=== PATIENT | female | born 1950 | race African-American/Black ===

== ENCOUNTER 2019-11-26 12:17 | Observation (INO) ==
[2019-11-26] MEDS ORDERED: ASPIRIN ONE (12:37)
[2019-11-26] MEDS ORDERED: ASPIRIN PO ONE (12:37)
[2019-11-26 13:01] LABS: BASO# 0.01 X1000 (0.0-0.2); BASO% 0.2 % (0.0-0.8); EOS# 0.21 X1000 (0.0-0.7); EOS% 3.6 % (0.0-10.0); HEMATOCRIT 35.4 % (37.0-47.0); HEMOGLOBIN 9.8 g/dL (12.0-16.0); IMM GRAN# 0.02 X1000 (0.0-0.04); IMM GRAN% 0.3 % (0.0-0.5); LYMPH# 1.52 X1000 (1.2-3.4); LYMPH% 26.4 % (20.5-51.1); MCH 25.9 PG (27-31); MCHC 27.7 g/dL (33-37); MCV 93.7 FL (81-99); MONO% 10.4 % (1.7-9.3); MPV 9.1 FL (7.4-10.4); NEUT% 59.1 % (42.2-75.2); PLT 270 X1000 (130-400); RBC 3.78 XMIL (4.2-5.4); WBC 5.76 X1000 (4.8-10.8)
--- NOTE | 2019-11-26 13:01 | Diag Imaging Result Doc PS360 ---
EXAM: CHEST-2 VIEWS HISTORY: cp TECHNIQUE: Two views COMPARISON: 11/23/2019 FINDINGS: The lungs are hyperexpanded. The heart is not enlarged. The vessels are small. There are no infiltrates. Tiny right pleural effusion versus pleural thickening. Left lower lobe granuloma. IMPRESSION: Emphysema. Stable chest Electronically signed by Oscar Oh 11/26/2019 12:58 PM
[2019-11-26 13:22] LABS: AGAP 10; ALBUMIN 4.5 g/dL (3.5-5.0); ALKALINE PHOSPHATASE 52 U/L (32-104); BUN 13 mg/dL (8-22); CALCIUM 9.4 mg/dL (8.8-10.2); CHLORIDE 95 mmol/L (98-107); CK PROFILE 58 U/L (24-173); COSMO 285; CREATININE 0.7 mg/dL (0.5-0.9); ESTIMATED GFR > 60; GLUCOSE 136 mg/dL (70-104); GOT 15 U/L (10-30); GPT 5 U/L (10-36); POTASSIUM 4.8 mmol/L (3.5-5.1); SODIUM 142 mmol/L (136-145); TCO2 37 mmol/L (25-35)
--- NOTE | 2019-11-26 13:32 | EKG Report ---
Test Performed on : 11/26/2019 12:43:31 PM Test Reason : cp Blood Pressure : / mmHG Vent. Rate : 094 BPM Atrial Rate : 094 BPM P-R Int : 190 ms QRS Dur : 082 ms QT Int : 346 ms P-R-T Axes : 071 062 076 degrees QTc Int : 432 ms Normal sinus rhythm. Normal ECG When compared with ECG of 21-FEB-2019 17:39, No significant change was found Unconfirmed Result
[2019-11-26 13:35] LABS: INR 0.84; PROTIME 11.9 Seconds (11.0-16.0)
[2019-11-26 13:36] LABS: PTT 32.1 Seconds (22.3-41.8)
--- NOTE | 2019-11-26 15:01 | PROVIDER DOCUMENTATION ---
This chart was entered by Bharati Chi Scribe, acting as scribe for Naomi Cummings MD. HPI-Chest Pain - General Chief Complaint: Chest Pain Stated Complaint: SHOULDER/HEAD PAINS Time Seen by Provider: 11/26/19 12:33 Source: patient, family () Allergies/Adverse Reactions: Patient Allergies Allergy/AdvReac Type Severity Reaction Status Date / Time clarithromycin [From Biaxin] Allergy Severe Unknown Verified 11/26/19 12:36 Home Medications: Home Medication List Medication Instructions Recorded Confirmed Last Taken Type Aspirin 81 mg PO QAM #0 chewtab 05/02/13 11/26/19 07/14/13 Rx 81 Atorvastatin Calcium 1 tab PO QHS 11/04/17 11/26/19 Unknown History Budesonide/Formoterol Fumarate 2 puff INH BID 11/04/17 11/26/19 Unknown History [Symbicort 160-4.5 Mcg Inhaler] Clopidogrel Bisulfate [Clopidogrel] 1 tab PO DAILY 11/04/17 11/26/19 Unknown History Furosemide [Lasix] 40 mg PO DAILY 11/04/17 11/26/19 Unknown History Metformin HCl [Metformin HCl ER] 1 tab PO DAILY 11/04/17 11/26/19 Unknown History Metoprolol Succinate 1 tab PO DAILY 11/04/17 11/26/19 Unknown History Potassium Chloride 1 tab PO BID 11/04/17 11/26/19 Unknown History Ranolazine [Ranexa] 1 tab PO BID 11/04/17 11/26/19 Unknown History Tiotropium Pharr Inhaler 1 inh INH DAILY 11/04/17 11/26/19 Unknown History [Spiriva] Alprazolam [Xanax] 0.5 mg PO BID 12/21/17 11/26/19 Unknown History Calcium Carbonate [Calcarb 600] 600 mg PO TID 12/21/17 11/26/19 Unknown History Esomeprazole Magnesium [Nexium] 40 mg PO DAILY #30 capsule. 12/21/17 11/26/19 Unknown Rx Iron,Carb/Vit C/Vit B12/Folic 1 tab PO BID 12/21/17 11/26/19 Unknown History [Iron 100 Plus Tablet] Latanoprost 1 drop BOTH EYES QHS 02/04/18 11/26/19 Unknown History Nitroglycerin 1 spray SL DIRECTED PRN 02/04/18 11/26/19 Unknown History Albuterol 2.5MG/Ipratrop 0.5MG 3 ml INH Q2H PRN PRN #180 neb 03/01/18 11/26/19 Unknown Rx [Duoneb (A & A)] Magnesium Oxide [Mag-Ox] 400 mg PO DAILY tablet 03/01/18 11/26/19 Unknown Rx - History of Present Illness-CP Nature of Presenting Problem: 69 yobf presents to the ed with c/o intermittent chest cramping with pain radiating into left shoulder, neck and occipital head for 1 week. pt sts last week with onset she took her Nitro and pain resolved only to come back later in the day. pt called dr musa wire harness design engineer today and was sent to ed Location: reports: other (left anterior) Chest Pain Radiation: reports: neck, shoulders, other (head) Quality of Pain: reports: cramping Severity in ED: moderate Onset/Duration: 1 week ago Timing: intermittent Context/Activities at Onset: reports: light activity Modifying Factors: improves with: other (nitro). worse with: nothing Associated Symptoms: reports: headache, shortness of breath (chronic). denies: nausea, vomiting Nitro Today/Relief: no nitro taken today Aspirin Treatment Today: 81 mg x 4 (at home), 325 mg x 1 (in ed) Prior Chest Pain/Cardiac Workup: reports: cardiac cath, other (sees dr musa) Similar Symptoms Previously?: Yes Recently Seen Here or By Another Healthcare Provider: Yes (dr musa) Review of Systems - Adult - REVIEW OF SYSTEMS - ADULT Constitutional: denies: chills, fever Eyes: reports: no symptoms reported Ears, Nose, Mouth & Throat: reports: no symptoms reported Cardiovascular: reports: see HPI, chest pain. denies: palpitations, syncope Respiratory: reports: see HPI, cough, shortness of breath (chronic) Gastrointestinal: denies: abdominal pain, diarrhea, nausea, vomiting Genitourinary: reports: no symptoms reported Musculoskeletal: reports: see HPI, joint pain (shoulder), neck pain. denies: back pain Integumentary: reports: no symptoms reported Neurological: reports: see HPI, headache/migraines. denies: dizziness/vertigo, slurred speech, syncope, tremors Psychiatric: reports: no symptoms reported Endocrine: reports: no symptoms reported Hematologic/Lymphatic: reports: no symptoms reported Allergic/Immunologic: reports: no symptoms reported All Other Systems: Reviewed and Negative Past History - Adult - PAST MEDICAL HISTORY-ADULT Review of Records: reports: Old Records Reviewed, Nursing Assessment Review, Medications Reviewed, Social history reviewed & non-contributory. Major Childhood Illnesses: reports: denies history Cardiovascular: reports: CAD, HTN, heart valve problem, hyperlipidemia Respiratory: reports: COPD Gastrointestinal: reports: cancer (esophageal), diverticulosis, GERD, other (diverticulitis) Obstetrical/Gynecological: reports: other (R breast ca) Genitourinary: reports: denies history Musculoskeletal: reports: denies history Hand Dominance: Right Handed Neurological: reports: denies history Psychiatric: reports: anxiety Endocrine/Immune: reports: Diabetes Diabetes Type: Type 2 Other Conditions: reports: denies history - PRIOR SURGERIES/PROCEDURES Surgical/Procedure History: reports: appendectomy, cholecystectomy, hysterectomy , orthopedic (extremity) (foot) - IMMUNIZATION STATUS Childhood Immunizations: See Nurse Assessment Flu Vaccine: See Nurse Assessment - FAMILY HISTORY Family History: reviewed, not pertinent - SOCIAL HISTORY Smoking: quit greater than 1 year Substance Use: denies Living Situation: family Physical Exam-General - PHYSICAL EXAM-ADULT Initial Vital Signs Reviewed: Yes (noted BP 197/93) - CONSTITUTIONAL General Appearance: appears well, alert, no apparent distress, obese - EYES Eyes: PERRL/EOMI, pink conjunctivae - HEAD, EARS, NOSE, MOUTH & THROAT HENMT: moist mucous membranes - NECK Neck: full range of motion, normal inspection, tender lateral (bilateral) - RESPIRATORY Respiratory: chest non-tender, rhonchi (bilateral) - CARDIOVASCULAR Cardiovascular: normal peripheral pulses, regular rate, rhythm, other (distal heart sound) - CHEST (BREASTS) Chest/Breast: deferred - GASTROINTESTINAL (ABDOMEN) Abdominal Exam: normal bowel sounds, non tender, soft - GENITOURINARY Female Genitalia/Pelvic Exam: deferred Rectal Exam: deferred Hemoccult Exam: deferred - LYMPHATIC Lymphatic: no adenopathy - MUSCULOSKELETAL Back Exam: normal inspection, no CVA tenderness, no vertebral tenderness Extremity: normal range of motion, normal inspection, no pedal edema, no calf tenderness, normal capillary refill, tenderness (left shoulder) - SKIN Integumentary: normal turgor, warm/dry, pallor - NEUROLOGIC Neurologic: grossly normal - PSYCHIATRIC Psych/Mental Status: normal mood/affect, normal thought content, normal thought process, oriented x 3 - HEART Score HEART Score: History: Moderately Suspicious HEART Score: ECG: Normal HEART Score: Age: > or = 65 Years HEART Score: Risk Factors for Atherosclerotic Disease: > or = 3 Risk Factors or History of Atherosclerotic Disease HEART Score: Troponin: < or = Normal Limit (hx of stents and current blockage per pt) Total HEART Score:: 5 Progress - PLAN OF CARE/RESULTS Progress/Plan/Lab Results: Vital Signs - 8 hr 11/26/19 12:32 Temperature 97.6 F Pulse Rate 86 Respiratory Rate 20 Blood Pressure 197/93 O2 Sat by Pulse Oximetry 96 Laboratory Results - last 24 hr 11/26/19 11/26/19 11/26/19 12:50 12:50 12:50 WBC 5.76 RBC 3.78 L Hgb 9.8 L Hct 35.4 L MCV 93.7 MCH 25.9 L MCHC 27.7 L RDW Std Deviation 15.0 H Plt Count 270 MPV 9.1 Immature Gran % (Auto) 0.3 Neut % (Auto) 59.1 Lymph % (Auto) 26.4 Crenshaw % (Auto) 10.4 H Eos % (Auto) 3.6 Baso % (Auto) 0.2 Immature Gran # (Auto) 0.02 Neut # (Auto) 3.40 Lymph # (Auto) 1.52 Crenshaw # (Auto) 0.60 H Eos # (Auto) 0.21 Baso # (Auto) 0.01 PT INR PTT (Actin FS) Sodium 142 Potassium 4.8 Chloride 95 L Carbon Dioxide 37 H Anion Gap 10 BUN 13 Creatinine 0.7 Estimated GFR/1.73 m2 > 60 BUN/Creatinine Ratio 19 Glucose 136 H Calculated Osmolality 285 Calcium 9.4 Total Bilirubin 0.40 AST 15 ALT 5 L Alkaline Phosphatase 52 Creatine Kinase 58 Troponin T Aip-P-Mfbhhaxbukd Pept 273 Total Protein 7.0 Albumin 4.5 Globulin 3.0 Albumin/Globulin Ratio 2.0 11/26/19 11/26/19 12:50 12:50 WBC RBC Hgb Hct MCV MCH MCHC RDW Std Deviation Plt Count MPV Immature Gran % (Auto) Neut % (Auto) Lymph % (Auto) Crenshaw % (Auto) Eos % (Auto) Baso % (Auto) Immature Gran # (Auto) Neut # (Auto) Lymph # (Auto) Crenshaw # (Auto) Eos # (Auto) Baso # (Auto) PT 11.9 INR 0.84 PTT (Actin FS) 32.1 Sodium Potassium Chloride Carbon Dioxide Anion Gap BUN Creatinine Estimated GFR/1.73 m2 BUN/Creatinine Ratio Glucose Calculated Osmolality Calcium Total Bilirubin AST ALT Alkaline Phosphatase Creatine Kinase Troponin T < 0.010 Yva-C-Ssoaclndctv Pept Total Protein Albumin Globulin Albumin/Globulin Ratio Orders Category Date Time Status Admit - [facility] Routine AdmDCTranf 11/26/19 15:14 Active Cardiac Monitoring DIRECTED Care 11/26/19 12:37 Active Oxygen Therapy- ED Nursing DIRECTED Care 11/26/19 12:37 Active Saline Loc NOW Care 11/26/19 12:37 Active CHEST-2 VIEWS [RAD] Stat Exams 11/26/19 12:37 Completed CBC WITH ELECTRONIC DIFF [HEME] Stat Lab 11/26/19 12:50 Completed CK PROFILE [SP CHEM] Stat Lab 11/26/19 12:50 Completed COMPREHENSIVE METABOLIC PANEL [CHEM] Stat Lab 11/26/19 12:50 Completed PRO B-NATRIURETIC PEPTIDE Stat Lab 11/26/19 12:50 Completed PROTIME WITH INR [COAG] Stat Lab 11/26/19 12:50 Completed PTT [COAG] Stat Lab 11/26/19 12:50 Completed TROPONIN T Stat Lab 11/26/19 12:50 Completed Aspirin Med 11/26/19 12:37 Discontinued 325 mg .ROUTE .STK-MED ONE Aspirin Med 11/26/19 12:37 Discontinued 325 mg PO NOW ONE EKG [EKG] Stat Ther 11/26/19 12:37 Draft Transfer/Admit Order [TRANSFER] Routine Transfer 11/26/19 15:14 Completed Result Diagrams: 11/26/19 12:50 11/26/19 12:50 - REASSESSMENT Reassessment #1 Time Reassessed: 14:12 (pt is resting in bed in no distress) Status: unchanged - EKG 1 Time of EKG reading by physician:: 12:43 EKG Read and Signed by:: Naomi Cummings EKG Interpretation (*Must complete 3 of following elements*): Normal Rate: 94 Rhythm: nsr [place]: normal QRS: normal OR Interval: normal ST Wave: normal - XRAY 1 XRAY: Bilateral XRAY Study: Chest Impression: See EMR Report (EXAM: CHEST-2 VIEWS HISTORY: cp TECHNIQUE: Two views COMPARISON: 11/23/2019 FINDINGS: The lungs are hyperexpanded. The heart is not enlarged. The vessels are small. There are no infiltrates. Tiny right pleural effusion versus pleural thickening. Left lower lobe granuloma. IMPRESSION: Emphysema. Stable chest Electronically signed by Oscar Oh 11/26/2019 12:58 PM 11/26/19 1258 Interpreting Physician: Oscar Oh MD Dictated Date/Time: 11/26/19 1257 cc: Naomi Cummings MD; None,PCP) - CONSULTS/PCP/HOSPITALIST Notification #1 *Consult/PCP/Hospitalist*: dr musa wire harness design engineer Time Discussed: 14:52 Reason/Comments: phone consult #2 Consult: hospitalist dr perez Time Discussed: 14:53 Reason/Comments: phone consult Consult Disposition: other (15:00 Dr Perez called back, pt's PCP is Dr Melo. Will page Dr Melo) #3 Consult: Dr Melo called back Time Discussed: 15:08 Consult Disposition: Admit (advised admission to [facility]) Departure - Departure Date of Disposition Decision: 11/26/19 Time of Disposition Decision: 14:30 DIAGNOSIS: Chest pain in adult Disposition: ADMITTED INPATIENT 09 Certified Medical Emergency: Emergent Condition: Stable - Critical Care Note This patient required my direct & personal management of CC.: No Attestation - Physician/ KATHIE Attestation Patient care was provided by Advanced Practice Provider:: No The physician spent face to face time with patient:: Yes Advanced Practice Provider documentation review:: Supervising physician onsite and consulted in the evaluation and care of this patient. The physician did have a face to face encounter with the patient. This chart was documented by the indicated scribe, (Bharati Chi Scribe) and accurately reflects the services I performed and decisions made by me, Naomi Irby MD, as attested by the provider's signature.
[2019-11-26] MEDS ORDERED: DUONEB (A & A) INH ONE (16:48)
[2019-11-26] MEDS ORDERED: XANAX PO PRN ×2 (20:11→22:30)
[2019-11-26] MEDS ORDERED: DUONEB (A & A) INH PRN (20:11)
[2019-11-26] MEDS ORDERED: NITROGLYCERIN LINGUAL SPRAY SL PRN (20:12)
[2019-11-26] MEDS ORDERED: XALATAN 0.005% OPH SOLN BOTH EYES SCH (21:00)
[2019-11-26] MEDS ORDERED: LIPITOR PO SCH (21:00)
[2019-11-26] MEDS ORDERED: XANAX ONE (21:12)
[2019-11-26] MEDS: ICAR-C PLUS PO SCH (23:02)
[2019-11-26] MEDS: RANEXA PO SCH (23:03)
[2019-11-26] MEDS: KLOR-CON PO SCH (23:03)
[2019-11-26] MEDS: SYMBICORT 160/4.5 MICROGM INHALER INH SCH (23:07)
--- NOTE | 2019-11-26 23:52 | HISTORY AND PHYSICAL ---
CHIEF COMPLAINT: Chest pain. HISTORY OF PRESENT ILLNESS: Ms. Saba is a 69-year-old female who presented to the emergency department at [facility] today with intermittent retrosternal and epigastric pain radiating to left shoulder and neck area for the previous week. The pain has been intermittent and has been moderate in intensity. It has been sharp in character. She states that she took nitroglycerin prior to arrival and the pain resolved, but it then returned; therefore, she called Dr. Madison's office, who advised her to go to the emergency room for further evaluation. PAST MEDICAL HISTORY: 1. Coronary artery disease 2. End-stage COPD with oxygen dependence. 3. Type 2 diabetes mellitus. 4. Dyslipidemia. 5. Chronic pain syndrome. 6. Hypertension. 7. Pulmonary hypertension. 8. Gastroesophageal reflux disease. 9. Anxiety disorder. 10. Lung cancer. PAST SURGICAL HISTORY: 1. Appendectomy. 2. Cholecystectomy. 3. Complete hysterectomy. SOCIAL HISTORY: The patient has previously smoked 1 pack of cigarettes per day for most of her life, but quit tobacco smoking in 2008. She denies using any recreational drugs and does not drink any alcohol. FAMILY HISTORY: Noncontributory. ALLERGIES: No known drug allergies reported. CURRENT HOME MEDICATIONS: 1. Alprazolam 0.5 mg orally twice daily as needed for anxiety. 2. Aspirin 81 mg orally once daily. 3. Atorvastatin 20 mg orally once daily at bedtime. 4. Furosemide 40 mg orally once daily in the morning. 5. Albuterol and ipratropium nebulization treatments every 6 hours as needed for wheezing. 6. Metformin ER 500 mg orally once daily. 7. Metoprolol ER 25 mg orally once daily. 8. Omeprazole 40 mg orally once daily. 9. Potassium chloride 10 mEq orally twice daily. 10. Ranexa 1000 mg orally twice daily. 11. Repatha 140 mg subcutaneously every 2 weeks. 12. Spiriva 18 mcg via inhalation once daily. 13. Symbicort 160/4.5 two puffs twice daily. 14. Ventolin inhaler 2 puffs q.4 hours as needed for shortness of breath and wheezing. 15. Anastrozole 1 mg orally once daily. 16. Azithromycin 260 mg orally once daily. REVIEW OF SYSTEMS: A full 14-point review of systems was obtained that was pretty much the same as already has been explained in the HPI. PHYSICAL EXAMINATION: VITAL SIGNS: Temperature 98 degrees, pulse 89 per minute, respiratory rate 15 per minute, blood pressure 142/87, pulse oximetry 96% on 2 L of oxygen via nasal cannula. GENERAL: Patient is alert and oriented x3. She does not appear to be in any acute distress. She does not report any chest pain at this present time. HEENT: Within normal limits. NECK: Supple, without any thyromegaly. LYMPHATICS: No lymphadenopathy noted in the neck region. CHEST: Chest wall is nontender. CARDIOVASCULAR: First and second heart sounds are audible without any murmurs or gallops. RESPIRATORY: Bilateral lung air entry is moderately decreased, but there are no rales or rhonchi present on auscultation. GASTROINTESTINAL: Patient is obese. Abdomen is soft and nontender on palpation. Normal bowel sounds are present. GENITOURINARY: Deferred. NEURO: No focal deficits are present. INTEGUMENTARY: Skin is warm, dry and without any rash. MUSCULOSKELETAL: No deformities are present. DIAGNOSTIC DATA: CBC shows hemoglobin of 9.8 and hematocrit 35.4. Rest of the CBC is nondiagnostic. In comparison, her hemoglobin and hematocrit were 10.5 and 35.3 on 02/21/2019. CMP is nondiagnostic and cardiac enzymes were found to be negative. ECG obtained at the emergency room showed normal sinus rhythm with ventricular rate of 94 beats per minute and no acute ischemic abnormalities. Chest x-ray did not show any acute disease. IMPRESSION: Chest pain in this 69-year-old lady who has a history of coronary artery disease and has multiple comorbid conditions, including end-stage chronic obstructive pulmonary disease, diabetes, hypertension, and dyslipidemia. PLAN: The patient has been admitted to the medical floor at [facility] and we are going to continue with her routine home medications. I am going to obtain serial cardiac enzymes to rule out any acute myocardial ischemic event and obtain Cardiology consultation to further assist us in evaluating her condition. Further recommendations will be given as per outcome of these measures. cc: Savannah Melo MD [facility]
--- NOTE | 2019-11-27 07:18 | EKG Report ---
Test Performed on : 11/27/2019 07:09:31 AM Test Reason : Chest Pain Blood Pressure : / mmHG Vent. Rate : 097 BPM Atrial Rate : 097 BPM P-R Int : 204 ms QRS Dur : 070 ms QT Int : 350 ms P-R-T Axes : 076 081 089 degrees QTc Int : 444 ms Sinus rhythm. with fusion complexes Low voltage QRS Nonspecific ST and T wave abnormality Abnormal ECG Confirmed by Yordan ROWLEY, Luis Cloud ([id number]) on 11/30/2019 9:26:59 AM
[2019-11-27] MEDS: SYMBICORT 160/4.5 MICROGM INHALER INH SCH (07:35)
[2019-11-27] MEDS ORDERED: GLUCOPHAGE XR PO SCH (08:00)
[2019-11-27] MEDS ORDERED: ASPIRIN PO SCH (09:00)
[2019-11-27] MEDS ORDERED: CALTRATE 600 PO SCH (09:00)
[2019-11-27] MEDS ORDERED: MAG-OX PO SCH (09:00)
[2019-11-27] MEDS ORDERED: PLAVIX PO SCH (09:00)
[2019-11-27] MEDS ORDERED: TOPROL XL PO SCH (09:00)
[2019-11-27 11:31] VITALS: BP 126/67
[2019-11-27] MEDS: RANEXA PO SCH (12:19)
[2019-11-27] MEDS: ICAR-C PLUS PO SCH (12:20)
[2019-11-27] MEDS: KLOR-CON PO SCH (12:20)
[2019-11-27] MEDS: LASIX PO SCH ×2 (12:20→15:39)
[2019-11-27] MEDS: NEXIUM PO SCH ×2 (12:20→15:38)
[2019-11-27] MEDS ORDERED: LEXISCAN ONE (14:05)
--- NOTE | 2019-11-27 15:40 | CARDIOLOGY CONSULTATION ---
DATE: 11/27/2019 REQUESTING PHYSICIAN: Dr. Melo for the hospitalist service. PRIMARY RECREATION AIDE: Dr. Madison. REASON FOR CONSULTATION: Chest discomfort and shortness of breath. HISTORY: Ms. Saba is a 69-year-old black female who presented to the [facility] yesterday at about 12:30 in the afternoon with complaints of pain in the left side of her head, neck, shoulder, off and on for at least 2 or 3 days. In addition, the patient was feeling more short of breath than usual. Because of her history of heart disease, she got concerned and decided to come for evaluation. In the ER, they checked troponin levels twice. They are negative. ProBNP level is normal. They did a chest x-ray that shows emphysema without any infiltrates. A 12 lead electrocardiogram has been reported as indicating sinus rhythm with low voltage, and no significant abnormalities. The patient at this time is free of pain. She is still on oxygen. PAST MEDICAL HISTORY: Positive for severe coronary heart disease. She has had previous myocardial infarctions and a heart catheterization in 2016 that showed multivessel coronary artery disease with heavy calcification of the LAD, 80% stenosis near the origin of diagonal branch, circumflex had luminal irregularities. Right coronary artery totally occluded. In March of 2019, she underwent stent to the LAD. The patient has peripheral vascular disease with stenosis of the left common femoral artery. She has hyperlipidemia. She has advanced COPD, and has been on home oxygen for a while. She has diabetes mellitus type 2, hyperlipidemia, chronic pain syndrome, and acid reflux. Her additional history includes breast cancer. PAST SURGICAL HISTORY: She has had cholecystectomy, hysterectomy, , and foot surgery. She has had mastectomy. SOCIAL HISTORY: She is . She has 5 children. She used to work at factories. She went on disability in 1995 on account of her advanced COPD. The patient quit smoking many years ago in 2008. FAMILY HISTORY: Noncontributory. HOME MEDICATIONS: At the time of this dictation include the followin. She is on albuterol inhaler. 2. Alprazolam 0.5 twice a day. 3. Anastrozole 1 mg at bedtime. 4. Aspirin 81 daily. 5. She is taking atorvastatin 20 mg daily. 6. She is also on Ranexa 500 twice a day. 7. Potassium chloride twice a day. 8. Magnesium oxide 400 mg daily. 9. Iron with vitamin C, B12, and folic acid. 10. Furosemide. 11. Lasix 40 mg daily. 12. Plavix 75 mg daily. 13. Calcium carbonate 600 3 times a day. 14. She is also on Spiriva and Symbicort inhalers. 15. She is on metformin 500 daily. 16. Nexium 40 mg daily. REVIEW OF SYSTEMS: She is chronically short of breath. She has noted some relief of her discomfort after taking nitroglycerin. No other major issues. Her ambulation is limited by the shortness of breath. PHYSICAL EXAMINATION: Vital Signs: Blood pressure 126/67, temperature 98.3 degrees, pulse 85, and respirations 18. General: She is awake, alert, and oriented in no distress. HEENT: Normal. Chest: Markedly diminished breath sounds bilaterally. Some hyper- resonance to percussion. Heart: Sounds are very distant, regular without gallop or murmur. Abdomen: Obese and nontender. Extremities: Decreased pulses. No peripheral edema. Neurologic: She follows commands, and can move all 4 extremities. LABORATORY: Sodium 142, potassium 4.8, BUN 13, creatinine 0.7, carbon dioxide 37, chloride 95, hemoglobin is 9.8, and hematocrit 35.3. IMPRESSION: 1. Patient who presents to the hospital with atypical discomfort in the left shoulder, left side of the chest and neck. This may or may not indicate angina pectoris. 2. History of severe coronary heart disease. A stent to LAD and also total occlusion of right coronary artery. 3. Advanced end-stage COPD on home oxygen. 4. Diabetes mellitus type 2 long-term. 5. History of hypertension. 6. Former smoker. 7. Hyperlipidemia. RECOMMENDATIONS: At this time, we will request a 2D echocardiogram and a Lexiscan myocardial perfusion stress test to reassess the cardiac status. If there is a fixed defect in the inferior wall, we will not worry much about it. If we find significant defects in the anteroapical segments of the left ventricle with ischemia, then we may have to recommend a followup heart catheterization. At this time, it appears that her symptoms are really noncardiac. My concern also is the fact that her hemoglobin is low. She may have iron deficiency, and that needs to be addressed. Her hemoglobin currently is 9.8. With her advanced COPD, that could potentially be causing her to feel more short of breath than usual. Further advice will be forthcoming. cc: MD Savannah Erickson MD MTDD
--- NOTE | 2019-11-27 16:07 | ECHO REPORT ---
ORDER DATE: 11/27/2019 PROCEDURE: 2D echocardiogram. INTERPRETING PHYSICIAN: Dr. Blayne Madison ECHOCARDIOGRAPHIC MEASUREMENTS: 1. Interventricular septum: 1.1 cm. 2. Left ventricular posterior wall: 1.0 cm. 3. Diastolic diameter: 3.6 cm. 4. Left atrium: 3.1 cm. 5. Aorta 3.4 cm. SUMMARY OF THE 2-DIMENSIONAL IMAGIN. Technically suboptimal study. Very poor acoustic window. Ultrasound was used to delineate endocardial borders. 2. Aortic valve leaflets are trileaflet. 3. Pulmonic valve not well visualized. 4. Mitral valve was normal. 5. Tricuspid valve was normal. 6. Normal left ventricular cavity size. 7. Mild left ventricular hypertrophy with estimated ejection fraction of 65%. There is grade 1-2 diastolic dysfunction. 8. Right ventricle was dilated with preserved right ventricular systolic function. 9. There is mild mitral regurgitation. Mild tricuspid regurgitation. Peak velocity across the tricuspid valve less than 2 m/sec. 10. Peak velocity across the aortic valve less than 2 m/sec. There is no aortic stenosis or regurgitation. 11. Anterior echo-free space suggestive of pericardial fat pad. There is no obvious intracardiac mass thrombus seen. cc: MD Carola Guardado PA Adnan A. Seljuki, MD
[2019-11-27 16:35] LABS: IRON SATURATION 21 %; TIBC 260 ug/dL; TOTAL IRON 54 ug/dL (49-151); UNBOUND IRON 206 ug/dL (112-346)
--- NOTE | 2019-11-27 16:57 | Diag Imaging Result Document ---
PROCEDURE NAME: MYOCARDIAL PERF SCAN, STR/REST - 11/27/2019 PROCEDURE: Walking Lexiscan Cardiolite stress test. DESCRIPTION OF PROCEDURE: Lexiscan was infused per standard protocol. There was no chest pain. Stress electrocardiogram was negative for ischemia. Following Lexiscan infusion, Cardiolite was injected. Total of 12.1 mCi of Cardiolite was injected for the rest phase; 38.4 mCi of Cardiolite was injected for the stress phase. Gated SPECT images were obtained in standard views. Images revealed normal left ventricular cavity size. There is significant chest wall attenuation. There is low-grade, small-sized fixed defect in the left ventricular apex suggestive of chest wall attenuation. Wall motion was normal. Left ventricular ejection fraction by gated SPECT was 86%. CONCLUSIONS: 1. No chest pain. 2. Negative Lexiscan stress electrocardiogram. 3. Normal left ventricular cavity size. There is no evidence of ischemia. 4. There is low-grade fixed defect in the left ventricular apex with significant chest wall attenuation and normal wall motion. This is likely to represent attenuation defect. Low probability of scar. 5. Left ventricular ejection fraction by gated SPECT was 86%. cc: MD Carola Guardado PA
[2019-11-27] MEDS ORDERED: RANEXA PO SCH (21:00)
--- NOTE | 2019-12-01 15:53 | DISCHARGE SUMMARY ---
ADMISSION DATE: 11/26/2019 DISCHARGE DATE: 11/27/2019 DISCHARGE DIAGNOSES: 1. Chest pain with a acute myocardial infarction ruled out 1. 2. Coronary artery disease. 3. 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 4. Type 2 diabetes mellitus. 5. Hypertension. 6. Dyslipidemia. HOSPITAL COURSE: Ms. Saba is a 69-year-old female who presented to the emergency department at [facility] with intermittent retrosternal and epigastric pain of 1 week duration. She was admitted to the hospital, and serial cardiac enzymes were obtained, which were negative. Her ECG also did not show any significant abnormalities. She was seen by a printing machine mechanic who did an echocardiogram that showed mild left ventricular hypertrophy with estimated left ventricular ejection fraction of 65%. There was also grade 1 to 2 diastolic dysfunction, but no other abnormalities were seen. She also underwent a Lexiscan Cardiolite stress study without any chest pain and was found to be negative for any evidence of ischemia. Left ventricular ejection fraction was estimated at 86%. Since patient was symptom-free and her tests were negative, she was discharged home. DISCHARGE MEDICATIONS: 1. Alprazolam 0.5 mg orally twice daily as needed for anxiety. 2. Aspirin 81 mg orally once daily. 3. Atorvastatin 20 mg orally once daily at bedtime. 4. Furosemide 40 mg orally once daily in the morning. 5. Albuterol and ipratropium nebulization treatments every 6 hours as needed for wheezing. 6. Metformin ER 500 mg orally once daily. 7. Metoprolol ER 25 mg orally once daily. 8. Omeprazole 40 mg orally once daily in the morning. 9. Potassium chloride 10 mEq orally twice daily. 10. Ranexa 1000 mg orally twice daily. 11. Repatha 140 mg subcutaneously every 2 weeks. 12. Spiriva 18 mcg by inhalation once daily. 13. Symbicort 160/4.5 two puffs twice daily. 14. Ventolin inhaler 2 puffs q.4 hours as needed for wheezing and shortness of breath. 15. Anastrozole 1 mg orally once daily. 16. Azithromycin 250 mg orally once daily. FOLLOW-UP: She will follow up at the office with me in approximately 1 week and follow up with Dr. Madison in 2 weeks. cc: Savannah Melo MD
== END 2019-11-27 18:28 | disposition home or self-care (01) ==
LOC: SUPCPDRO → P.ED 12:17 → EDIPHOLD 12:17 → 1N 22:04
PROVIDERS: ADMIT Internal Medicine; ATTEND Internal Medicine